=== PATIENT | male | born 1985 | race Caucasian/White ===

== ENCOUNTER 2020-02-10 08:36 | Emergency (ER) | payer MEDICAID ==
[~2020-02-10] VITALS: Ht 180.3 cm; Wt 74.0 kg
[2020-02-10 09:00] VITALS: BP 145/76
[2020-02-10] MEDS ORDERED: acetaminophen 325mg tablet PO ONE (09:30)
== END 2020-02-10 10:48 | disposition home or self-care (01) ==
LOC: ER 08:36
DX: S22.32XA Fracture of one rib, left side, initial encounter for closed fracture (principal); F17.200 Nicotine dependence, unspecified, uncomplicated; Z88.0 Allergy status to penicillin; Y08.89XA Assault by other specified means, initial encounter; Y93.89 Activity, other specified; Y92.89 Other specified places as the place of occurrence of the external cause; Y99.8 Other external cause status
CPT/HCPCS: 71100; 93005; 99283; 99285

== ENCOUNTER 2020-10-01 13:55 | Emergency (ER) | payer MEDICAID ==
[~2020-10-01] VITALS: Ht 177.8 cm; Wt 76.7 kg
[2020-10-01 14:03] VITALS: BP 135/82
--- NOTE | 2020-10-01 14:30 | NUR ---
INFECTED TOOTH EXTRACTED THIS AM. PT C/O PAIN. DENTIST DID NOT PRESCRIBE PAIN MED
[2020-10-01] MEDS ORDERED: HYDROcodone/acetaminophen 10/325mg tab PO ONE (15:05)
[2020-10-01] MEDS ORDERED: NAPR-56 PO (15:05)
== END 2020-10-01 15:32 | disposition home or self-care (01) ==
LOC: ER 13:55
DX: K08.89 Other specified disorders of teeth and supporting structures (principal); Z88.0 Allergy status to penicillin; Z79.899 Other long term (current) drug therapy
CPT/HCPCS: 99283